=== PATIENT | male | born 1945 | race Caucasian/White ===

== ENCOUNTER 2018-08-24 20:47 | Emergency (ER) | payer MEDICARE, OTHER ==
[2018-08-24] MEDS ORDERED: Bacitracin Oint 1 GM U/D Packet TOP ONE (21:47)
[2018-08-24] MEDS ORDERED: Lidocaine 1% 30 ML SDV INJECT ONE (21:47)
[2018-08-24] MEDS ORDERED: Diphtheria,Pertussis(Acell),Tetanus Vaccine 0.5 ML SDV IM ONE (21:47)
--- NOTE | 2018-08-24 23:12 | EDM.PDOC ---
ED HPI GENERAL MEDICAL PROBLEM - General Chief Complaint: Laceration Stated Complaint: FISH HOOK IN FINGER Time Seen by Provider: 08/24/18 23:07 Source of Information: Reports: Patient History Limitations: Reports: No Limitations - History of Present Illness INITIAL COMMENTS - FREE TEXT/NARRATIVE: fish hook stuck in right thumb. Right Finger-Thumb Pain Score (Numeric/FACES): 8 - Related Data Allergies Allergy/AdvReac Type Severity Reaction Status Date / Time codeine Allergy Dizziness Unverified 09/27/13 08:56 garlic [From Garlique] Allergy Diarrhea Unverified 09/27/13 08:56 hydrocodone Allergy Dizziness Unverified 09/27/13 08:56 oxycodone [Oxycodone] Allergy Dizziness Unverified 09/27/13 08:56 Penicillins Allergy Swelling Unverified 09/27/13 08:56 Home Meds: Home Meds Losartan/Hydrochlorothiazide [Losartan-HCTZ 100-25 MG] 11/04/13 [History] traMADol [Ultram] 11/04/13 [History] valACYclovir HCl [valACYclovir] 11/04/13 [History] Past Medical History HEENT History: Reports: Impaired Vision Other HEENT History: wears glasses Cardiovascular History: Reports: Hypertension Respiratory History: Reports: None Genitourinary History: Reports: None Musculoskeletal History: Reports: None Neurological History: Reports: None Psychiatric History: Reports: None Endocrine/Metabolic History: Reports: None Immunologic History: Reports: None Oncologic (Cancer) History: Reports: None Dermatologic History: Reports: Other (See Below) Other Dermatologic History: basal cell cancer remission Social & Family History - Tobacco Use Smoking Status *Q: Never Smoker - Recreational Drug Use Recreational Drug Use: No ED ROS GENERAL - Review of Systems Review Of Systems: ROS reveals no pertinent complaints other than HPI. ED EXAM, SKIN/RASH Exam: See Below Exam Limited By: No Limitations General Appearance: Alert, No Apparent Distress Eye Exam: Bilateral Eye: EOMI Ears: Normal External Exam Nose: No: Nasal Drainage Throat/Mouth: Normal Voice Head: Atraumatic, Normocephalic Neck: Full Range of Motion Respiratory/Chest: No Respiratory Distress Cardiovascular: Normal Peripheral Pulses Neurological: Alert, Oriented, Normal Cognition, Normal Gait Psychiatric: Normal Affect Skin: Warm, Dry, Wound/Incision (triple billy fish hook to mid right thump palmar surface) Associated features: Tenderness ED SKIN PROCEDURES - Foreign Body Removal Foreign Body Other Location Comment:: triple billy fish hook to palmar side of thumb Anesthesia Type: Local (1% without lidocaine,) Complications:: No Comments:: hook /billy pushed through skin. Course - Vital Signs Last Recorded V/S: Last Vital Signs Temp 98.2 F 08/24/18 21:15 Pulse 79 08/24/18 21:15 Resp 16 08/24/18 21:15 BP 138/87 08/24/18 21:15 Pulse Ox 95 08/24/18 21:15 - Orders/Labs/Meds Meds: Medications Discontinued Medications Generic Name Dose Route Start Last Admin Trade Name Freq PRN Reason Stop Dose Admin Bacitracin 1 dose 08/24/18 21:47 08/24/18 22:01 Bacitracin Oint 1 Gm TOP 08/24/18 21:48 1 dose ONETIME ONE Administration Diphtheria/Tetanus/Acell Pertussis 0.5 ml 08/24/18 21:47 08/24/18 22:00 Adacel IM 08/24/18 21:48 0.5 ml .ONCE ONE Administration Lidocaine HCl 30 ml 08/24/18 21:47 08/24/18 22:01 Xylocaine-Mpf 1% INJECT 08/24/18 21:48 30 ml ONETIME ONE Administration Departure - Departure Time of Disposition: 23:07 Disposition: Home, Self-Care 01 Condition: Good Clinical Impression: Foreign body - Discharge Information *PRESCRIPTION DRUG MONITORING PROGRAM REVIEWED*: No *COPY OF PRESCRIPTION DRUG MONITORING REPORT IN PATIENT JUDITH: No Instructions: Puncture Wound, [id number] Forms: ED Department Discharge Additional Instructions: greg area clean cover with bandaide and antibiotic ointment during day, open to air at night tylenol or ibuprofen for discomfort follow up if swelling redness or drainage
== END 2018-08-24 23:11 | disposition home or self-care (01) ==
LOC: DL.ED 20:47
DX: S60.351A Superficial foreign body of right thumb, initial encounter (principal); I10 Essential (primary) hypertension; Z88.0 Allergy status to penicillin; Z88.5 Allergy status to narcotic agent; Z23 Encounter for immunization; Z88.8 Allergy status to other drugs, medicaments and biological substances; W45.8XXA Other foreign body or object entering through skin, initial encounter
CPT/HCPCS: 90715; 96372; 99282; J2001

== ENCOUNTER 2019-12-09 06:19 | Day surgery (SDC) | payer MEDICARE, OTHER ==
[2019-12-09] MEDS ORDERED: Midazolam 1 MG/ML 2 ML SDV IV ONE ×7 (06:20→07:42)
[2019-12-09] MEDS ORDERED: fentaNYL 100 MCG/2 ML SDV IV ONE ×5 (06:20→07:46)
[2019-12-09] MEDS ORDERED: Midazolam 1 MG/ML 2 ML SDV ONE (06:46)
[2019-12-09] MEDS ORDERED: fentaNYL 100 MCG/2 ML SDV ONE (06:47)
[2019-12-09] MEDS ORDERED: Dextrose 5%-0.45% NaCl 1,000 ML IV SCH (07:00)
--- NOTE | 2019-12-09 09:24 | OR ---
DATE: 12/09/2019 PROCEDURE: Total colonoscopy. INSTRUMENT USED: PCF-H190DL Olympus video colonoscope. PREMEDICATIONS: Fentanyl 150 mcg intravenous, Versed 4 mg intravenous. Nasal O2 cannula. The procedure was done under pulse oximetry, BP recording, and lunchroom monitor. INDICATION: The patient with progressive constipation and left-sided abdominal pain unexplained and not responsive to medical measures. Colonoscopic examination is done for detection of any polypoid lesions and removal, endoscopic hemostasis therapy if needed. DESCRIPTION OF PROCEDURE: Initial rectal exam was unremarkable. Rigid anoscopy showed small internal hemorrhoids without bleeding from them. The colonoscope was passed with ease. Scattered diverticula were noted in the distal left colon along with deformity. The scope was passed with ease up to the ileocecal area. Photographs were taken of the normal-appearing cecum identified by landmarks of appendiceal orifice and double-bulged ileocecal folds. No bleeding was noted from any of the visualized areas at the commencement of the examination. The bowel preparation was found to be adequate. [place] scale 2 in right and left colon, 3 in transverse colon, total score 7. No stricture. No vascular ectasia. No large isolated ulcerations seen. No evidence of diffuse inflammatory bowel disease in the form of friability, contact bleeding, or ulcerations. No polyp or tumor mass identified. Probing the proximal sides of folds and flexures using adequate distention and clearing up the stool material, withdrawal of the scope was made. Cecum to rectum time over 6 minutes. No bleeding was noted from any of the visualized areas at the completion of examination. IMPRESSION: 1. Internal hemorrhoids. 2. Diverticulosis. The patient tolerated the procedure well. [facility] /[id number] LILLIE
== END 2019-12-09 10:04 | disposition home or self-care (01) ==
LOC: DL.ENDO 06:19
PROVIDERS: ATTEND Internal Medicine Gastroenterology
DX: K57.30 Diverticulosis of large intestine without perforation or abscess without bleeding (principal); K64.8 Other hemorrhoids; K59.00 Constipation, unspecified; E66.09 Other obesity due to excess calories; I10 Essential (primary) hypertension; G47.00 Insomnia, unspecified; F41.1 Generalized anxiety disorder; G25.81 Restless legs syndrome; M19.90 Unspecified osteoarthritis, unspecified site; Z86.19 Personal history of other infectious and parasitic diseases; Z98.890 Other specified postprocedural states; Z87.828 Personal history of other (healed) physical injury and trauma; Z90.49 Acquired absence of other specified parts of digestive tract; Z96.651 Presence of right artificial knee joint; Z88.8 Allergy status to other drugs, medicaments and biological substances; Z68.27 Body mass index [BMI] 27.0-27.9, adult
CPT/HCPCS: 45378; J2250; J3010; J7042